=== PATIENT | male | born 1955 | race Two or more races ===

== ENCOUNTER 2018-09-16 12:57 | Emergency (ER) | payer OTHER, MEDICAID ==
[~2018-09-16] VITALS: Ht 167.6 cm; Wt 72.6 kg
[2018-09-16 13:02] VITALS: Ht 167.6 cm; Wt 72.6 kg
[2018-09-16 14:19] LABS: BASOPHIL % 0.9 % (0-2); RED CELL DISTRIBUTION WIDTH 14.4 % (11.5-14.5)
[2018-09-16 14:20] LABS: PLATELET COUNT 124 x10^3mcL (130-400)
[2018-09-16 14:32] LABS: BILIRUBIN TOTAL 0.6 mg/dL (0.20-1.00); CALCIUM 7.8 mg/dL (8.5-10.1); CARBON DIOXIDE 38.5 mmol/L (21-32); CREATININE SERUM 2.8 mg/dL (0.7-1.3); POTASSIUM SERUM 3.3 mmol/L (3.5-5.1); TOTAL PROTEIN, SERUM 6.7 g/dL (6.4-8.2)
[2018-09-16 14:33] LABS: ALBUMIN 2.4 g/dL (3.4-5.0)
[2018-09-16] MEDS ORDERED: NOR10 PO (16:48)
[2018-09-16] MEDS ORDERED: ASPIR 8181 MG PO (16:48)
[2018-09-16 20:54] VITALS: BP 119/72
== END 2018-09-16 20:54 | disposition short-term general hospital (02) ==
LOC: ED 12:57
PROVIDERS: Emergency Medicine
DX: K85.10 Biliary acute pancreatitis without necrosis or infection (principal); E11.22 Type 2 diabetes mellitus with diabetic chronic kidney disease; I12.0 Hypertensive chronic kidney disease with stage 5 chronic kidney disease or end stage renal disease; N18.6 End stage renal disease; Z99.2 Dependence on renal dialysis; Z90.89 Acquired absence of other organs
CPT/HCPCS: C9113; J2405; J2543; Q0092